=== PATIENT | male | born 1965 | race Caucasian/White ===

== ENCOUNTER 2021-02-05 22:47 | Inpatient (IN) | payer OTHER ==
[~2021-02-05] VITALS: Ht 170.2 cm; Wt 103.9 kg
[2021-02-06 03:53] LABS: HEMOGLOBIN 13.5 gm/dl (14.0-17.5); RED BLOOD COUNT 4.71 M/UL (4.20-5.50); WHITE BLOOD COUNT 14.3 K/UL (4.5-11.0)
[2021-02-06 04:16] LABS: BUN/CREATININE RATIO 26 (0-10)
[2021-02-07 07:08] LABS: HEMOGLOBIN 11.9 gm/dl (14.0-17.5); WHITE BLOOD COUNT 14.4 K/UL (4.5-11.0)
[2021-02-07 07:09] LABS: RED BLOOD COUNT 4.16 M/UL (4.20-5.50)
[2021-02-07 07:28] LABS: BUN/CREATININE RATIO 30 (0-10)
[2021-02-08 03:54] LABS: HEMOGLOBIN 11.4 gm/dl (14.0-17.5); RED BLOOD COUNT 3.87 M/UL (4.20-5.50); WHITE BLOOD COUNT 11.7 K/UL (4.5-11.0)
[2021-02-08] MEDS ORDERED: BLOOD GLUCOSE1 EAC1 MC (14:05)
[2021-02-08] MEDS ORDERED: LANTUS SOL100 UNIT/1 SQ (14:05)
[2021-02-08] MEDS ORDERED: INSULIN AS100 UNIT/3 SQ (14:05)
[2021-02-08] MEDS ORDERED: GLUCOPHAGE 500500 MG PO (14:05)
[2021-02-08] MEDS ORDERED: GLUCOSE TEST S1 EACH MC (14:05)
[2021-02-08] MEDS ORDERED: CEPHALEXIN500 M1 PO (14:05)
[2021-02-09] MEDS ORDERED: INVANZ 1 GM VIAL1 GM IV (10:45)
[2021-02-09 10:51] LABS: BUN/CREATININE RATIO 24 (0-10)
[2021-02-09] MEDS ORDERED: LISINOPRIL5 MG PO (10:59)
[2021-02-09] MEDS ORDERED: HUMALOG100 UNIT/3 SC (13:43)
--- NOTE | 2021-02-09 15:28 | NUR ---
20g x [address] in the left basilic vein, using ultrasound guidance. Aspirates and flushes well. No complications.
--- NOTE | 2021-02-09 17:52 | NUR ---
PER [facility]TH[facility]HRO[facility]ACK[facility], CALLED PT TO RETURN TO [facility] 02/10/21 TO OUTPATIENT SERVICES TO RECEIVE DRESSING CHANGE AND PACKING CHANGE. PT HAS BEEN NOTIFIED AND TRIED TO CONTACT PSYCHOLOGY PROFESSOR WITH NO SUCCESS.
== END 2021-02-09 16:36 | disposition home health service (06) | DRG 580 ==
LOC: ER1 22:47 → CDU 02-06 05:10 → M/S 02-06 05:10
PROVIDERS: Internal Medicine; Orthopaedic Surgery; Physician Assistant; ADMIT Internal Medicine
PROC: 0J9G0ZZ Drainage of Right Lower Arm Subcutaneous Tissue and Fascia, Open Approach (ICD-10-PCS; principal; 2021-02-06 14:37)
PROC: 2W5 Placement, Anatomical Regions, Removal (ICD-10-PCS; 2021-02-08)
DX: L02.511 Cutaneous abscess of right hand (principal); L03.113 Cellulitis of right upper limb; E87.1 Hypo-osmolality and hyponatremia; L02.413 Cutaneous abscess of right upper limb; Z20.822 Contact with and (suspected) exposure to COVID-19; D64.9 Anemia, unspecified; E87.6 Hypokalemia; B95.62 Methicillin resistant Staphylococcus aureus infection as the cause of diseases classified elsewhere; E11.65 Type 2 diabetes mellitus with hyperglycemia; I10 Essential (primary) hypertension; K21.9 Gastro-esophageal reflux disease without esophagitis; E86.0 Dehydration; Z79.4 Long term (current) use of insulin
CPT/HCPCS: 36415; 73201; 80048; 80053; 80202; 82550; 82553; 82962; 83036; 83605; 83874; 84484; 85025; 85027; 85652; 86140; 87040; 87070; 87077; 87186; 87205; 96365; 96367; 99284; C1751; J0171; J1100; J1170; J1335; J2001; J2185; J2250; J2270; J2405; J2543; J2704; J2795; J3010; J3370; J3480; J7030; J7070; J7120; Q9967; U0002